=== PATIENT | male | born 1990 | race Caucasian/White ===

== ENCOUNTER 2024-04-03 19:39 | Emergency (ER) | payer SELFPAY ==
[2024-04-03] MEDS: Aspirin 81 MG Tab.Chew PO ONE (20:00)
[2024-04-03 20:11] LABS: BASOPHILS ABSOLUTE AUTO 0.1 K/mm3 (0.0-0.2); BASOPHILS PERCENT AUTO 0.5 % (0.0-1.0); EOSINOPHILS ABSOLUTE AUTO 0.1 K/mm3 (0.0-0.4); EOSINOPHILS PERCENT AUTO 1.5 % (0.0-6.0); IMMATURE GRAN ABSOLUTE AUTO 0.02 K/mm3 (0.00-0.05); IMMATURE GRAN PERCENT AUTO 0.2 % (0.0-0.4); LYMPHOCYTES ABSOLUTE AUTO 3.1 K/mm3 (1.0-4.8); LYMPHOCYTES PERCENT AUTO 33.8 % (24.0-44.0); MEAN CORPUSCULAR HEMOGLOBIN 30.5 pg (28.0-32.0); MEAN CORPUSCULAR HGB CONC 34.9 g/dl (32.0-36.0); MEAN CORPUSCULAR VOLUME 87.4 fl (83.0-99.0); MONOCYTES ABSOLUTE AUTO 0.6 K/mm3 (0.0-0.8); MONOCYTES PERCENT AUTO 6.9 % (0.0-8.0); NEUTROPHILS ABSOLUTE AUTO 5.2 K/mm3 (1.8-7.7); NEUTROPHILS PERCENT AUTO 57.1 % (41.0-71.0); PLATELET COUNT,PLT 269 K/mm3 (150-400); RED BLOOD CELL COUNT 4.92 M/mm3 (4.52-5.90); WHITE BLOOD CELL COUNT,WBC 9.13 K/mm3 (3.9-11.3)
[2024-04-03 20:40] LABS: A/G RATIO 1.4 (1-2); ALANINE AMINOTRANSFERASE,ALT 33 U/L (16-63); ALBUMIN 4.1 g/dl (3.4-5.0); ALKALINE PHOSPHATASE 68 U/L (46-116); ANION GAP 14.2 (5-15); ASPARTATE AMNIOTRANSFERASE,AST 24 U/L (15-37); BILIRUBIN TOTAL 0.3 mg/dL (0.2-1.0); BLOOD UREA NITROGEN,BUN 11 mg/dL (7-18); CALCIUM 9.1 mg/dL (8.5-10.1); CARBON DIOXIDE,CO2 26 mEq/L (21-32); CHLORIDE,CL 100 mEq/L (98-107); EST CRCL DRUG DOSING (CG) 97.31 mL/min; ESTIMATED GFR 101 mL/min (>60); GLUCOSE RANDOM 96 mg/dL (70-99); LIPASE 30 U/L (16-77); POTASSIUM,K 3.2 mEq/L (3.5-5.1); SODIUM,NA 137 mEq/L (136-145)
[2024-04-03 20:48] LABS: TROPONIN I HIGH SENSITIVITY < 4 pg/mL (<=76)
[2024-04-03] MEDS: Potassium Chloride 20 MEQ Tab.ER PO ONE (21:18)
== END 2024-04-03 21:28 | disposition home or self-care (01) ==
LOC: JD.ED 19:39
DX: R07.9 Chest pain, unspecified (principal); E87.6 Hypokalemia
CPT/HCPCS: 36415; 71045; 80053; 83690; 83880; 84484; 85025; 93005; 99285; A9270

== ENCOUNTER 2024-07-19 12:19 | Emergency (ER) | payer SELFPAY ==
[2024-07-19] MEDS ORDERED: cefTRIAXone 2 GM, Lidocaine 1% 4.2 ML IM ONE (12:53)
[2024-07-19] MEDS: cefTRIAXone 2 GM in Sodium Chloride 0.9% 100 ML IV ONE (13:12)
[2024-07-19] MEDS: Ketorolac 30 MG/ML SDV IVPUSH ONE (13:12)
[2024-07-19] MEDS: Lidocaine 1% 10 ML MDV INJECT ONE (13:13)
[2024-07-19] MEDS: Amoxicillin/Clavulanate K 875-125 MG Tab PO ONE (14:34)
== END 2024-07-19 14:38 | disposition home or self-care (01) ==
LOC: JD.ED 12:19
DX: K04.7 Periapical abscess without sinus (principal); F17.210 Nicotine dependence, cigarettes, uncomplicated
CPT/HCPCS: 41800; 96365; 96375; 99282; A9270; J0696; J1885; J3490

== ENCOUNTER 2025-06-23 15:45 | Emergency (ER) | payer BC | END 2025-06-23 17:05 | disposition home or self-care (01) | LOC: JD.ED 15:45 | DX: S90.31XA Contusion of right foot, initial encounter (principal); F17.200 Nicotine dependence, unspecified, uncomplicated; W22.8XXA Striking against or struck by other objects, initial encounter | CPT/HCPCS: 73630-26-RT; 73630-RT; 99283 ==